=== PATIENT | female | born 1985 | race Caucasian/White ===

== ENCOUNTER 2016-04-01 | Outpatient (CLI) | payer SELFPAY | END 2016-04-01 22:54 | disposition critical access hospital (66) | DX: R45.851 Suicidal ideations (principal) | CPT/HCPCS: A0425; A0429 ==

== ENCOUNTER 2016-04-01 23:21 | Emergency (ER) | payer SELFPAY ==
[2016-04-02] MEDS ORDERED: LORazepam 0.5 MG TABLET ONE (00:34)
[2016-04-02] MEDS ORDERED: LORazepam 0.5 MG TABLET PO STA (00:35)
[2016-04-02] MEDS ORDERED: NICOTINE 14 MG PATCH TOP ONE (02:08)
[2016-04-02] MEDS ORDERED: NICOTINE 14 MG PATCH TOP STA (02:27)
== END 2016-04-02 12:48 | disposition home or self-care (01) ==
DX: F32.9 Major depressive disorder, single episode, unspecified (principal); R45.851 Suicidal ideations; F10.10 Alcohol abuse, uncomplicated; F17.200 Nicotine dependence, unspecified, uncomplicated; Z85.07 Personal history of malignant neoplasm of pancreas
CPT/HCPCS: 36415; 80048; 80306; 80307; 80320; 80329; 81003; 81025; 85025; 99283; 99284; A9270

== ENCOUNTER 2017-08-08 20:56 | Emergency (ER) | payer MEDICAID ==
[2017-08-08 21:27] LABS: BILIRUBIN,URINE NEGATIVE (NEGATIVE); GLUCOSE, URINE (UA) NEGATIVE (NEGATIVE); KETONES,URINE (UA) NEGATIVE (NEGATIVE); LEUKOCYTE ESTERASE, URINE NEGATIVE (NEGATIVE); NITRITE,URINE NEGATIVE (NEGATIVE); OCCULT BLOOD,URINE NEGATIVE (NEGATIVE); PROTEIN,URINE NEGATIVE (NEGATIVE); UROBILINOGEN,URINE 0.2 (NORMAL) E.U./dL (NORMAL)
--- NOTE | 2017-08-08 21:29 | ED Physician Documentation ---
PD HPI LOWER EXT INJURY - Stated complaint Stated Complaint: R HIP PAIN - Chief complaint Chief Complaint: Ext Problem - History obtained from History obtained from: Patient - History of Present Illness PD HPI LOW EXT INJURY LOCATION: Right, Hip Type of injury: Fall Where injury occurred: Home Timing - onset: Yesterday Timing - details: Abrupt onset Similar symptoms before: Work up / diagnostics, Treatment Recently seen: Not recently seen - Additional information Additional information: Patient is a 31 year old female presenting to the emergency department for hip pain. patient states that last year she broke her hip but it did not require surgery to fix it. patient states that she was taking care of a young child and she fell re-injuring her hip. Patient denies LOC or any other trauma at that time. Review of Systems Ten Systems: 10 systems reviewed and negative Musculoskeletal: reports: Extremity pain, Joint pain PD PAST MEDICAL HISTORY - Past Medical History Cardiovascular: Murmur Endocrine/Autoimmune: Other - Past Surgical History Past Surgical History: Yes - Present Medications Home Medications: Ambulatory Orders Medication Instructions Recorded Confirmed Carisoprodol [Soma] 350 mg PO TID PRN #20 tablet 09/21/15 Hydrocodone/Acetaminophen [Vicodin 1 - 2 each PO Q6HR PRN #20 tablet 09/21/15 5-300 mg Tablet] - Allergies Allergies/Adverse Reactions: Allergies Allergy/AdvReac Type Severity Reaction Status Date / Time No Known Drug Allergies Allergy Verified 09/21/15 01:50 - Social History Does the pt smoke?: Yes Smoking Status: Current every day smoker Does the pt drink ETOH?: Yes Does the pt have substance abuse?: No - Immunizations Immunizations are current?: Yes PD ED PE NORMAL - Vitals Vital signs reviewed: Yes - General General: Alert and oriented X 3 - HEENT HEENT: Atraumatic - Cardiac Cardiac: RRR - Respiratory Respiratory: No respiratory distress - Abdomen Abdomen: Non distended - Derm Derm: Normal color, Warm and dry - Neuro Neuro: Alert and oriented X 3, No motor deficit, Normal speech Eye Opening: Spontaneous Motor: Obeys Commands Verbal: Oriented GCS Score: 15 PD ED PE EXPANDED - Extremities Extremities: Right hip (tenderness to palpation ), Motor intact, Sensory intact , Vascular intact, Tendon intact Results - Vitals Vitals: Vital Signs - 24 hr 08/08/17 08/08/17 21:03 22:20 Temperature 36.6 C 37.0 C Heart Rate 115 H 98 Respiratory 20 18 Rate Blood Pressure 141/87 H 119/72 O2 Saturation 99 98 Oxygen O2 Source Room air - Labs Labs: Laboratory Tests 08/08/17 21:10 Urine Color YELLOW Urine Clarity CLEAR Urine pH 6.0 Ur Specific [place] 1.015 Urine Protein NEGATIVE Urine Glucose (UA) NEGATIVE Urine Ketones NEGATIVE Urine Occult Blood NEGATIVE Urine Nitrite NEGATIVE Urine Bilirubin NEGATIVE Urine Urobilinogen 0.2 (NORMAL) Ur Leukocyte Esterase NEGATIVE Ur Microscopic Review NOT INDICATED Urine Culture Comments NOT INDICATED Urine HCG, Qual NEGATIVE - Rads (name of study) pelvis x-ray Radiology: Final report received (no acute fracture or dislocation) PD MEDICAL DECISION MAKING - ED course Complexity details: reviewed old records, reviewed results, re-evaluated patient , considered differential, d/w patient ED course: Patient was seen and examined at bedside. patient's urine was collected and patient was sent for imaging. When patient returned from imaging patient was treated with ibuprofen and tylenol. patient had no acute fractures or dislocations. Patient required no further work up and was stable for discharge with outpatient follow up. Departure - Departure Disposition: 01 Home, Self Care Clinical Impression: Hip pain, acute Condition: Good Instructions: ED Contusion Hip Follow-Up: primary,care provider [Other] - As Needed Comments: Your diagnostics today were within normal limits. There is no acute fracture or dislocation. Your previous fracture has healed. You should ice your hip and take motrin or tylenol as needed for pain. You can expect to be in more pain over the next few days but should dissipate. You should follow up with your doctor if your symptoms persist. You may return to the emergency department at any time for new, worsening or uncontrollable symptoms.
[2017-08-08 21:31] LABS: CLARITY,URINE CLEAR (CLEAR); HCG UR QUAL NEGATIVE
[2017-08-08] MEDS ORDERED: IBUPROFEN 600 MG TABLET PO STA (21:39)
[2017-08-08] MEDS ORDERED: ACETAMINOPHEN 500 MG TABLET PO STA (21:39)
--- NOTE | 2017-08-08 22:10 | XRAY Preliminary Report ---
Exam: XR HIP W/PELVIS 2-3V RT IMPRESSION: No acute pelvic/right hip fracture seen. [facility] SITE ID: [id number]
--- NOTE | 2017-08-08 22:13 | XRAY Report ---
EXAM: RIGHT HIP AND PELVIS RADIOGRAPHY EXAM DATE: 08/08/2017 09:36 PM. HISTORY: History of pubic ramus fracture, fell, right-sided hip pain. COMPARISONS: 09/21/2015. TECHNIQUE: 1 view of the pelvis and 1 view of the hip. FINDINGS: Bones: Old right pubic rami fractures. No acute fracture or bone lesion. Joints: The bilateral hip, pubis symphysis, and sacroiliac joints are preserved. Soft Tissues: IUD present. No soft tissue swelling. IMPRESSION: No acute pelvic/right hip fracture seen. [facility] Referring Provider Line: [phone] SITE ID: [id number]
[2017-08-08 22:20] VITALS: BP 119/72
== END 2017-08-08 22:22 | disposition home or self-care (01) ==
LOC: ED 20:56
DX: F17.200 Nicotine dependence, unspecified, uncomplicated (principal); M25.551 Pain in right hip; Z91.81 History of falling
CPT/HCPCS: 73502; 81003; 81025; 99283; A9270; 81001; 87086